=== PATIENT | male | born 1950 | race Caucasian/White ===

== ENCOUNTER 2020-09-17 20:36 | Emergency (ER) | payer MEDICARE, OTHER ==
[~2020-09-17] VITALS: Ht 182.9 cm; Wt 109.1 kg
[~2020-09-17 20:36] MED LIST: COZAAR 25MG25 MG/TAB PO
[2020-09-17 20:43] VITALS: TEMP 98.3
[2020-09-17 21:03] LABS: BASO # 0.1 (0.0-0.2); BASO % 0.5 % (0.0-2.0); EOS # 0.2 (0.0-0.7); EOS % 1.7 % (0-4.0); GRAN # 7.8 (1.4-6.5); GRAN % 67.9 % (42.2-75.2); HEMATOCRIT 45.2 % (42.0-52.0); HEMOGLOBIN 15.1 g/dl (13.5-18.0); LYMPH # 2.1 (1.2-3.4); LYMPH % 18.2 % (20.0-51.0); MEAN CELL VOLUME 94 fl (80.0-100.0); MEAN CORPUSCULAR HEMOGLOBIN 32 pg (27.0-31.0); MEAN CORPUSCULAR HGB CONC 33 g/dl (33.0-37.0); MEAN PLATELET VOLUME 11.9 fl (7.4-10.4); MONO # 1.3 (0.1-0.6); MONO % 11.4 % (1.7-9.3); PLATELET COUNT 177 K/mm3 (130-400); REDCELL DISTRIBUTION WIDTH-CV 14.1 % (11.5-14.5)
[2020-09-17] MEDS ORDERED: KAPSPARGO SPRIN50 MG PO (21:08)
[2020-09-17] MEDS ORDERED: TIKOSYN0.25 MG PO (21:08)
[2020-09-17] MEDS ORDERED: ELIQUIS 5MG PO (21:08)
[2020-09-17] MEDS ORDERED: FLOMAX 0.40.4 MG/CAP PO (21:09)
[2020-09-17] MEDS ORDERED: LASIX 20MG TABL20 MG PO (21:09)
[2020-09-17 21:12] LABS: INR 1.6 (0.8-3.0); PROTHROMBIN TIME 17.9 SECONDS (9.7-12.8)
[2020-09-17 21:17] LABS: ALBUMIN 4.4 gm/dL (3.5-5.0); BILIRUBIN,TOTAL 2.3 mg/dL (0.0-1.0); CALCIUM 9.5 mg/dL (8.4-10.2); CREATININE, serum 1.05 (0.66-1.25); TOTAL PROTEIN 7.8 gm/dL (6.4-8.2)
[2020-09-17 21:46] LABS: TROPONIN-I 0.052 ng/mL (0.000-0.035)
[2020-09-18 00:01] VITALS: BP 134/87; PULSE 89
== END 2020-09-18 00:01 ==
LOC: COL.ER 20:36
PROVIDERS: Emergency Medicine
DX: I48.91 Unspecified atrial fibrillation (principal); R74.8 Abnormal levels of other serum enzymes; R79.89 Other specified abnormal findings of blood chemistry; I10 Essential (primary) hypertension; Z95.818 Presence of other cardiac implants and grafts; Z79.01 Long term (current) use of anticoagulants; Z79.899 Other long term (current) drug therapy
CPT/HCPCS: J1940